=== PATIENT | female | born 2000 ===

== ENCOUNTER → 2025-09-20 | Outpatient (CLI) | payer OTHER ==
[2025-09-20 18:16] LABS: Hematocrit 40.2 % (33.0-51.0); Hemoglobin 13.3 g/dL (11.5-16.0); Mean Corpuscular HGB Conc 33.1 g/dL (31.5-36.5); Mean Corpuscular Volume 84 fL (80-100); NRBC ABSOLUTE 0.00 K/mm3 (0.00-0.02); NRBC Auto 0.0 /100 WBC (0.0-0.2); Platelet Count 291 K/mm3 (150-400); RDW Coefficient Variation 13.3 % (11.7-14.2); RDW Standard Deviation 41.2 fL (35.1-46.3)
[2025-09-20 18:56] LABS: Anion Gap 9 mmol/L (3-11); Blood Urea Nitrogen 17 mg/dL (8-24); CHOL/HDL RATIO 2.5; CO2, Blood 27 mmol/L (21-32); Calcium, Blood 9.3 mg/dL (8.5-10.1); Chloride, Blood 104 mmol/L (98-108); Cholesterol 155 mg/dL (50-200); Creatinine, Blood 0.84 mg/dL (0.40-1.00); Glucose, Blood 106 mg/dL (70-99); HDL Cholesterol 61 mg/dL (>39); LDL/HDL RATIO 1.2; Low Density Lipoprotein Chol 75 mg/dL (0-110); Potassium, Blood 3.6 mmol/L (3.5-5.5); Sodium, Blood 136 mmol/L (136-145); Thyroid Stimulating Hormone 1.560 uIU/mL (0.360-4.800); Triglycerides 93 mg/dL (30-140); Very Low Density Lipoprot Chol 18 mg/dL (6-28)
[2025-09-22 21:24] LABS: TISSUE TRANSGLUTAMINAS TTG,IGA <1.02 FLU (0.00-4.99)
[2025-09-22 21:25] LABS: DEAMIDATED GLIADIN PEPTIDE,IGA <0.72 FLU (0.00-4.99)
== END ==
LOC: LAB SHORT 17:36 → LAB 17:36
PROVIDERS: Family Medicine
DX: E66.09 Other obesity due to excess calories (principal)
CPT/HCPCS: 80048; 80061; 83036; 84443; 85027; 86258; 86364